=== PATIENT | male | born 1960 ===

== ENCOUNTER → 2021-01-05 | Outpatient (REF) ==
--- NOTE | 2021-01-05 09:09 | REPPI ---
INDICATION: DISABILITY DIAGNOSIS DETERMINATION COMPARISON: None. TECHNIQUE: PA and lateral. FINDINGS: The mediastinum and cardiac silhouette are normal. The lung azar are demonstrate elevation to the left hemidiaphragm with mild chronic appearing left basilar changes. No discrete focal consolidation, effusion, or pneumothorax. The skeletal structures are intact and normal. IMPRESSION: Chronic appearing changes suggested in the left lower lung zone. No prior examination for comparison. If the patient remains symptomatic consider chest CT for further investigation. <Electronically signed by Fidel Martins > 01/05/21 0920
== END ==
LOC: M PLAIMG 08:48
PROVIDERS: ATTEND Internal Medicine
DX: R91.8 Other nonspecific abnormal finding of lung field (principal)